=== PATIENT | female | born 1990 | race African-American/Black ===

== ENCOUNTER 2025-09-04 08:25 | Emergency (ER) | payer OTHER ==
[~2025-09-04] VITALS: Ht 172.7 cm; Wt 82.6 kg
[2025-09-04] MEDS: KETOROLAC TROMETHAMINE 30 MG/ML VIAL IV ONE (09:08)
[2025-09-04] MEDS: FAMOTIDINE 20 MG/2 ML VIAL IV ONE (09:08)
[2025-09-04] MEDS: ONDANSETRON HCL INJ 2MG/ML 2ML 2 MG/ML VIAL IV ONE (09:08)
[2025-09-04] MEDS: SODIUM CHLORIDE 0.9% 1000ML 1,000 ML IV STA (09:08)
[2025-09-04] MEDS ORDERED: FAMOTIDINE20 MG PO (09:24)
[2025-09-04] MEDS ORDERED: TYLENOL325 MG PO (09:24)
[2025-09-04] MEDS ORDERED: ONDANSETRON ODT4 MG PO (09:24)
[2025-09-04] MEDS ORDERED: MAALOX MAXIMUM355 ML PO (09:24)
[2025-09-04 10:05] VITALS: PULSE 68; RESP 16; TEMP 98.2; O2SAT 97
== END 2025-09-04 10:05 | disposition home or self-care (01) ==
LOC: FSED 08:31
DX: K52.9 Noninfective gastroenteritis and colitis, unspecified (principal); R11.2 Nausea with vomiting, unspecified; K57.90 Diverticulosis of intestine, part unspecified, without perforation or abscess without bleeding; R10.9 Unspecified abdominal pain; R51.9 Headache, unspecified
CPT/HCPCS: 74176; 80053; 81003; 81025; 85025; 96374; 96375; 99284; J1308; J1885; J2405; J7030

== ENCOUNTER 2025-09-21 02:45 | Emergency (ER) | payer OTHER ==
[~2025-09-21 02:45] MED LIST: FAMOTIDINE20 MG PO; MAALOX MAXIMUM355 ML PO; ONDANSETRON ODT4 MG PO; TYLENOL325 MG PO
== END 2025-09-21 02:57 | disposition short-term general hospital (02) ==
LOC: FSED 02:50
DX: S89.92XA Unspecified injury of left lower leg, initial encounter (principal)